=== PATIENT | male | born 1985 | race African-American/Black ===

== ENCOUNTER 2017-04-23 12:16 | Emergency (ER) | payer MEDICAID ==
[~2017-04-23] VITALS: Ht 177.8 cm; Wt 84.0 kg
[2017-04-23] MEDS ORDERED: DIVAL250 PO (12:24)
[2017-04-23] MEDS ORDERED: KEPP500 PO (12:24)
[2017-04-23 13:30] LABS: CLARITY URINE CLEAR (CLEAR); COLOR URINE YELLOW (YELLOW); KETONES URINE TRACE (NEGATIVE); LEUKOCYTE ESTERASE URINE NEGATIVE (NEGATIVE); NITRITE URINE NEGATIVE (NEGATIVE); OCCULT BLOOD URINE 3+ (NEGATIVE); PROTEIN URINE NEGATIVE (NEGATIVE); SPECIFIC GRAVITY URINE 1.024 (1.005-1.030); UROBILINOGEN URINE 0.2 E.U./dL (0.2-1.0)
[2017-04-23] MEDS ORDERED: ONDANSETRON HCL 4MG/2ML VIAL IV ONE (14:00)
[2017-04-23] MEDS ORDERED: KETOROLAC 15MG/ML VIAL IV ONE (14:00)
[2017-04-23] MEDS ORDERED: SODIUM CHLORIDE 0.9% 1,000 ML IV ONE (14:00)
[2017-04-23 14:58] LABS: BASOPHILS % 0.4 % (0.0-2.0); EOSINOPHILS % 0.3 % (0.0-5.0); HEMATOCRIT. 42.5 % (42.0-52.0); HEMOGLOBIN. 14.4 g/dL (14.0-18.0); MEAN CORPUSCULAR HEMOGLOBIN 31.3 pg (28.0-32.0); MEAN CORPUSCULAR VOLUME 92.4 fL (80.0-94.0); MEAN PLATELET VOLUME 9.3 fl (7.4-10.4); MONOCYTES % 13.4 % (2.0-8.0); NEUTROPHILS % 62.9 % (40.0-76.0); PLATELET 109 x1000/uL (130-400); RED CELL DISTRIBUTION WIDTH 13.5 % (11.6-14.6)
[2017-04-23 15:13] LABS: CHLORIDE 104 mEq/L (98-107)
[2017-04-23 15:20] VITALS: BP 127/61
[2017-04-23 15:21] LABS: CARBON DIOXIDE 27 mEq/L (21-32)
== END 2017-04-23 16:04 | disposition home or self-care (01) ==
LOC: ER 12:31
DX: N20.0 Calculus of kidney (principal); G40.909 Epilepsy, unspecified, not intractable, without status epilepticus
CPT/HCPCS: 36415; 76770; 80053; 81001; 85025; 96361; 96374; 99285; J7030; Z7610

== ENCOUNTER 2017-08-18 16:44 | Emergency (ER) | payer SELFPAY ==
[~2017-08-18] VITALS: Ht 180.3 cm; Wt 91.8 kg
[~2017-08-18 16:44] MED LIST: DIVAL250 PO; KEPP500 PO
[2017-08-18] MEDS ORDERED: LEVETIRACETAM 1000MG/100ML 100 ML IV ONE (18:00)
[2017-08-18 18:17] LABS: BASOPHILS % 0.5 % (0.0-2.0); CHLORIDE 103 mEq/L (98-107); EOSINOPHILS % 0.2 % (0.0-5.0); HEMATOCRIT. 44.9 % (42.0-52.0); HEMOGLOBIN. 15.6 g/dL (14.0-18.0); MEAN CORPUSCULAR HEMOGLOBIN 32.7 pg (28.0-32.0); MEAN CORPUSCULAR VOLUME 94.1 fL (80.0-94.0); MEAN PLATELET VOLUME 8.4 fl (7.4-10.4); MONOCYTES % 11.9 % (2.0-8.0); NEUTROPHILS % 61.4 % (40.0-76.0); PLATELET 159 x1000/uL (130-400); RED BLOOD CELL COUNT 4.77 mill/uL (4.7-6.1); RED CELL DISTRIBUTION WIDTH 12.9 % (11.6-14.6)
[2017-08-18 20:07] VITALS: BP 126/77
== END 2017-08-18 20:10 | disposition home or self-care (01) ==
LOC: ER 18:59
DX: R56.9 Unspecified convulsions (principal)
CPT/HCPCS: 36415; 80053; 80165; 80185; 85025; 96365; 99284; J1953